=== PATIENT | male | born 1960 | race African-American/Black ===

== ENCOUNTER 2018-02-27 22:51 | Emergency (ER) | payer MEDICAID, OTHER ==
[~2018-02-27] VITALS: Ht 182.9 cm; Wt 90.7 kg
[~2018-02-27 22:51] MED LIST: NORCO 5-325 TA1 EACH PO; PROZAC10 MG ORAL
[2018-02-28] MEDS ORDERED: IBUPROFEN600 MG ORAL (00:23)
[2018-02-28] MEDS ORDERED: ROBAXIN-750750 MG PO (00:23)
[2018-02-28] MEDS ORDERED: Methocarbamol 750mg tab ORAL ONE (00:30)
[2018-02-28] MEDS ORDERED: Norco 5mg/325mg tab ORAL ONE (00:30)
[2018-02-28 01:13] VITALS: BP 130/92
[2018-02-28 01:17] VITALS: BP 130/92
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
== END 2018-02-28 01:18 | disposition home or self-care (01) ==
LOC: EMR 23:45
DX: M54.2 Cervicalgia (principal); M25.561 Pain in right knee; M25.511 Pain in right shoulder; V43.62XA Car passenger injured in collision with other type car in traffic accident, initial encounter; Y93.9 Activity, unspecified; Y92.410 Unspecified street and highway as the place of occurrence of the external cause
CPT/HCPCS: 99283